=== PATIENT | male | born 1950 | race Caucasian/White ===

== ENCOUNTER 2018-03-01 06:50 | Outpatient (CLI) | payer MEDICARE, OTHER ==
[2018-03-01] MEDS ORDERED: IOPAMIDOL-300 50 ML VIAL ONE (07:35)
[2018-03-01] MEDS ORDERED: IOPAMIDOL-300 100 ML VIAL ONE (07:35)
[2018-03-01 08:46] LABS: CREATININE 0.9 mg/dL (0.6-1.2)
--- NOTE | 2018-03-01 09:42 | CT Report ---
Procedure Date: 03/01/2018 Accession Number: [id number] / [id number] Procedure: CT - Abdomen/Pelvis W/ CPT Code: FULL RESULT: EXAM: Abdomen/Pelvis W/ DATE: 03/01/2018 9:08 AM CLINICAL HISTORY: ABDOMINAL PAIN,LLQ, TOBACCO DEPENDENCE COMPARISON: None. TECHNIQUE: Routine helical CT imaging was performed through the abdomen and pelvis. IV contrast: 100 mL Isovue 300. Enteric contrast: Yes. Reconstructions: Coronal and sagittal. In accordance with CT protocol optimization, one or more of the following dose reduction techniques were utilized for this exam: automated exposure control, adjustment of mA and/or KV based on patient size, or use of iterative reconstructive technique. FINDINGS: Lung Bases: Unremarkable. Liver: Normal. No masses. Gallbladder/Bile Ducts: Unremarkable. Spleen: Normal. Pancreas: Normal. Adrenal Glands: Normal. Kidneys: Normal. No masses or hydronephrosis. Peritoneal Cavity/Bowel: Normal. No free fluid, free air or adenopathy. No masses or acute inflammatory process. The appendix is well visualized and normal. Pelvic Organs: Sigmoid diverticulosis, without CT evidence of diverticulitis. Vasculature: No aneurysms or other significant abnormality. Bones: No significant abnormality. Other: None. IMPRESSION: Diverticulosis, without CT evidence of diverticulitis. RADIA
[2018-03-01] MEDS: IOPAMIDOL-300 100 ML VIAL IVP ONE (11:18)
[2018-03-01] MEDS: IOPAMIDOL-300 50 ML VIAL PO ONE (11:18)
== END 2018-03-01 06:51 | disposition home or self-care (01) ==
LOC: LAB 06:50 → DI 06:51
PROVIDERS: ATTEND Internal Medicine Gastroenterology
DX: K57.30 Diverticulosis of large intestine without perforation or abscess without bleeding (principal); R10.32 Left lower quadrant pain; F17.200 Nicotine dependence, unspecified, uncomplicated
CPT/HCPCS: 36415; 74177; 82565; 93005; Q9967

== ENCOUNTER 2018-03-09 10:22 | Day surgery (SDC) | payer MEDICARE, OTHER ==
[2018-03-09] MEDS ORDERED: LACTATED RINGERS 1,000 ML IV ONE (11:02)
[2018-03-09] MEDS ORDERED: MIDAZOLAM 2 MG/2 ML VIAL IVP ONE (12:11)
[2018-03-09] MEDS ORDERED: fentaNYL 250 MCG/5 ML VIAL IVP ONE (12:11)
[2018-03-09 14:17] VITALS: BP 122/65
== END 2018-03-09 10:23 | disposition home or self-care (01) ==
LOC: SDS 10:22
PROVIDERS: ATTEND Internal Medicine Gastroenterology
PROC: 0DBL8ZZ Excision of Transverse Colon, Via Natural or Artificial Opening Endoscopic (ICD-10-PCS; 2018-03-09)
PROC: 0DBN8ZZ Excision of Sigmoid Colon, Via Natural or Artificial Opening Endoscopic (ICD-10-PCS; 2018-03-09)
PROC: 3E0H8GC Introduction of Other Therapeutic Substance into Lower GI, Via Natural or Artificial Opening Endoscopic (ICD-10-PCS; 2018-03-09)
PROC: 0DBM8ZZ Excision of Descending Colon, Via Natural or Artificial Opening Endoscopic (ICD-10-PCS; principal; 2018-03-09 11:30)
DX: R10.32 Left lower quadrant pain (principal); D12.4 Benign neoplasm of descending colon; D12.3 Benign neoplasm of transverse colon; K63.5 Polyp of colon; K57.30 Diverticulosis of large intestine without perforation or abscess without bleeding; Z80.0 Family history of malignant neoplasm of digestive organs; G47.30 Sleep apnea, unspecified; R73.03 Prediabetes; F17.210 Nicotine dependence, cigarettes, uncomplicated; E66.9 Obesity, unspecified; Z68.34 Body mass index [BMI] 34.0-34.9, adult
CPT/HCPCS: 45380; 45381; 45385; J3010; J7120; 36415; 82565

== ENCOUNTER 2018-07-20 14:00 | Outpatient (CLI) | payer MEDICARE, OTHER | END 2018-07-20 14:01 | disposition critical access hospital (66) | LOC: EMS 14:00 | PROVIDERS: ATTEND Surgery | DX: S09.90XA Unspecified injury of head, initial encounter (principal); M25.552 Pain in left hip; M79.661 Pain in right lower leg; M25.532 Pain in left wrist; W11.XXXA Fall on and from ladder, initial encounter; Y92.008 Other place in unspecified non-institutional (private) residence as the place of occurrence of the external cause | CPT/HCPCS: A0425; A0429 ==

== ENCOUNTER 2018-07-20 14:38 | Emergency (ER) | payer MEDICARE, OTHER ==
[2018-07-20] MEDS ORDERED: TETANUS/DIPHTHERIA/PERTUSSIS 0.5 ML SYRINGE IM ONE (14:52)
[2018-07-20] MEDS ORDERED: BUFFERED LIDOCAINE 10 ML SYRINGE SUBQ STA (14:53)
--- NOTE | 2018-07-20 14:55 | ED Physician Documentation ---
History of Present Illness - Stated complaint Stated Complaint: FALL FROM LADDER - Chief complaint Chief Complaint: Trauma Ext - History obtained from History obtained from: Patient, EMS - History of Present Illness Timing: Today (68-year-old gentleman with unknown tetanus status was putting up the [employer] lights after having a few drinks. He was up about 12 feet and the ladder gave out on him. He fell hitting his right leg first, then his left hip and then his left scalp. There was no loss of consciousness. He is not anticoagulated. He declines pain medication on initial evaluation.) Review of Systems Ten Systems: 10 systems reviewed and negative Constitutional: denies: Fever, Chills Nose: denies: Rhinorrhea / runny nose, Congestion Cardiac: denies: Chest pain / pressure, Palpitations Respiratory: denies: Dyspnea, Cough PD PAST MEDICAL HISTORY - Present Medications Home Medications: Ambulatory Orders Medication Instructions Recorded Confirmed No Known Home Medications 03/08/18 07/20/18 - Allergies Allergies/Adverse Reactions: Allergies Allergy/AdvReac Type Severity Reaction Status Date / Time codeine Allergy Hives Verified 07/20/18 14:52 PD ED PE NORMAL - Vitals Vital signs reviewed: Yes - General General: Alert and oriented X 3, Other (Jovial fellow not in C-spine precautions who smells slightly of alcohol.) - HEENT HEENT: PERRL, EOMI, Other (There is a 1 cm laceration over the far left forehead without underlying bony tenderness) - Neck Neck: Supple, no meningeal sign, No bony TTP - Cardiac Cardiac: RRR, No murmur - Respiratory Respiratory: No respiratory distress, Clear bilaterally - Abdomen Abdomen: Normal bowel sounds, Soft, Non tender - Extremities Extremities: Other (Left hip is slightly shortened and externally rotated and he has difficult pain with any rotation. There is a deformity of the upper tibial area on the right. He has a little shallow laceration on the palm, thenar musculature without underlying bony tenderness on the left.) - Neuro Neuro: Alert and oriented X 3, communications director 2-12 intact Eye Opening: Spontaneous Motor: Obeys Commands Verbal: Oriented GCS Score: 15 - Psych Psych: Normal mood, Normal affect Results - Vitals Vitals: Vital Signs - 24 hr 07/20/18 07/20/18 14:47 16:58 Temperature 36.8 C Heart Rate 76 78 Respiratory 16 16 Rate Blood Pressure 134/78 H 129/70 O2 Saturation 96 97 Oxygen O2 Source Room air - Labs Labs: Laboratory Tests 07/20/18 07/20/18 15:10 15:10 WBC 11.6 H RBC 4.10 L Hgb 13.7 L Hct 40.4 L MCV 98.7 H MCH 33.4 H MCHC 33.8 RDW 13.0 Plt Count 211 MPV 7.7 Neut # (Auto) 9.5 H Lymph # (Auto) 1.2 L Bollinger # (Auto) 0.7 Eos # (Auto) 0.1 Baso # (Auto) 0.1 Absolute Nucleated RBC 0.01 Nucleated RBC % 0.1 Sodium 135 Potassium 3.8 Chloride 104 Carbon Dioxide 24 Anion Gap 7.0 BUN 18 Creatinine 0.9 Estimated GFR (MDRD) 84 L Glucose 129 H Calcium 9.2 Total Bilirubin 0.5 AST 27 ALT 27 Alkaline Phosphatase 87 Total Protein 7.6 Albumin 4.6 Globulin 3.0 Albumin/Globulin Ratio 1.5 Lipase 25 Ethyl Alcohol 5.1 - Rads (name of study) L wrist 4v Radiology: EMP read contemporaneously (Intra-Articular distal radius fracture) L Hip XR Radiology: EMP read contemporaneously (Impacted left femoral neck fracture with mild displacement) R tib fib Radiology: EMP read contemporaneously (Spiral fracture through the tibial plateau and upper tibia) CT Head and Cspine Radiology: EMP read contemporaneously (no ICH or frx) Procedures - Laceration (location) Face Length in cm: 2 Wound type: Linear Anesthesia: Lidocaine 1%, With bicarb Wound Preparation: Irrigated copiously NS Skin layer closure: Nylon, Running, Size #-0 - enter number (5-0) Other: Tetanus booster given Complexity: Simple L hand Length in cm: 1 Wound type: Curved Anesthesia: Lidocaine 1%, With bicarb Wound Preparation: Irrigated copiously NS Skin layer closure: Nylon, Interrupted, Size #-0 - enter number (4-0), Sutures - enter # (3) Other: Tetanus booster given Complexity: Simple - Splint (location) L wrist Splint applied by: Tech Type of splint: Fiberglass, Long arm, Sugar tong Other: Patient tolerated well, No complications, Neurovascular intact PD MEDICAL DECISION MAKING - ED course ED course: 68-year-old gentleman fell off a ladder today from about 12 feet first onto the right foot and then the left hip. He has multiple fractures including the left distal radius, left hip, and a complicated fracture of the right tib. Case discussed by phone with Dr. Eaton, the on-call orthopedist reviewed his x-rays. The hip and especially the tibia probably require transfer to a trauma center for definitive treatment and he was accepted at [facility] by Dr. Vitale at 1730 and cobras were completed. He is stable for transport. Departure - Departure Disposition: 02 Transfer Acute Care Hosp Clinical Impression: Impacted fracture of left hip Qualifiers: Encounter type: initial encounter Fracture type: closed Qualified Code(s): S72.092A - Other fracture of head and neck of left femur, initial encounter for closed fracture Tibial plateau fracture, right Qualifiers: Encounter type: initial encounter Fracture type: closed Qualified Code(s): S82.141A - Displaced bicondylar fracture of right tibia, initial encounter for closed fracture Left wrist fracture Qualifiers: Encounter type: initial encounter Fracture type: closed Qualified Code(s): S62.102A - Fracture of unspecified carpal bone, left wrist, initial encounter for closed fracture Fall from ladder Qualifiers: Encounter type: initial encounter Qualified Code(s): W11.XXXA - Fall on and from ladder, initial encounter Head injury Qualifiers: Encounter type: initial encounter Qualified Code(s): S09.90XA - Unspecified injury of head, initial encounter Facial laceration Qualifiers: Encounter type: initial encounter Qualified Code(s): S01.81XA - Laceration without foreign body of other part of head, initial encounter Laceration of hand Qualifiers: Encounter type: initial encounter Foreign body presence: without foreign body Laterality: left Qualified Code(s): S61.412A - Laceration without foreign body of left hand, initial encounter Condition: Serious
[2018-07-20 15:32] LABS: BASOPHILS # (AUTO) 0.1 10^3/uL (0.0-0.1); BASOPHILS % (AUTO) 0.6 %; EOSINOPHILS # (AUTO) 0.1 10^3/uL (0.0-0.7); EOSINOPHILS % (AUTO) 0.7 %; HGB - HEMOGLOBIN 13.7 g/dL (14.0-18.0); LYMPHOCYTES # (AUTO) 1.2 10^3/uL (1.5-3.5); LYMPHOCYTES % (AUTO) 10.6 %; MEAN CORPUSCULAR HEMOGLOBIN 33.4 pg (27.0-31.0); MEAN CORPUSCULAR HGB CONC 33.8 g/dL (32.0-36.0); MEAN CORPUSCULAR VOLUME 98.7 fL (80.0-94.0); MEAN PLATELET VOLUME 7.7 fL (7.4-11.4); MONOCYTES # (AUTO) 0.7 10^3/uL (0.0-1.0); MONOCYTES % (AUTO) 6.1 %; NEUTROPHILS # (AUTO) 9.5 10^3/uL (1.5-6.6); PLT - PLATELET COUNT 211 10^3/uL (130-450); WHITE BLOOD COUNT 11.6 x10^3/uL (4.8-10.8)
[2018-07-20 15:38] LABS: ALBUMIN 4.6 g/dL (3.2-5.5); ALBUMIN/GLOBULIN RATIO 1.5 (1.0-2.2); BILIRUBIN,TOTAL 0.5 mg/dL (0.2-1.0); CALCIUM 9.2 mg/dL (8.5-10.3); CREATININE 0.9 mg/dL (0.6-1.2); TOTAL PROTEIN 7.6 g/dL (6.7-8.2)
[2018-07-20] MEDS ORDERED: MORPHINE 10 MG/ML VIAL IVP STA (16:20)
[2018-07-20 17:00] VITALS: BP 129/70
--- NOTE | 2018-07-20 17:09 | XRAY Report ---
Reason: fall from height Procedure Date: 07/20/2018 Accession Number: [id number] / [id number] Procedure: XR - Chest 1 View X-Ray CPT Code: 48702 FULL RESULT: EXAM: CHEST RADIOGRAPHY EXAM DATE: 07/20/2018 03:58 PM. CLINICAL HISTORY: Fall from ladder. Left-sided pain. COMPARISON: None. TECHNIQUE: 1 view. FINDINGS: Lungs/Pleura: No focal opacities evident. No pleural effusion. No pneumothorax. Mediastinum: Within exam limitations, the cardiomediastinal contour is normal. Other: No fractures identified. IMPRESSION: Normal single view chest. RADIA
--- NOTE | 2018-07-20 17:11 | XRAY Report ---
Reason: fall wrist inj Procedure Date: 07/20/2018 Accession Number: [id number] / [id number] Procedure: XR - Wrist 4 View LT CPT Code: FULL RESULT: EXAM: LEFT WRIST RADIOGRAPHY EXAM DATE: 07/20/2018 03:59 PM. CLINICAL HISTORY: Fall from ladder. Wrist injury. Pain. COMPARISON: None. TECHNIQUE: 4 views. FINDINGS: Bones: Minimally distracted radial styloid fracture. No other bone abnormalities identified. Joints: Normal. No subluxations. Soft Tissues: Associated soft tissue swelling. IMPRESSION: Radial styloid fracture. RADIA
--- NOTE | 2018-07-20 17:14 | XRAY Report ---
Reason: fall leg injury Procedure Date: 07/20/2018 Accession Number: [id number] / [id number] Procedure: XR - Hip w/Pelvis 2-3V LT CPT Code: FULL RESULT: EXAM: LEFT HIP AND PELVIS RADIOGRAPHY EXAM DATE: 07/20/2018 03:58 PM. HISTORY: Fall from ladder, left leg injury. COMPARISONS: FEMUR 2V LT 07/20/2018 3:58 PM. TECHNIQUE: 1 view of the pelvis and 1 view of the hip. FINDINGS: Bones: Acute transverse fracture mid left femoral neck with mild displacement. No other fracture or focal bone lesion is identified. Joints: The bilateral hip, pubis symphysis, and sacroiliac joints are preserved. Moderate degenerative disk disease L4-L5. Soft Tissues: Normal. No soft tissue swelling. IMPRESSION: Mildly displaced acute transverse fracture of the mid left femoral neck. RADIA
--- NOTE | 2018-07-20 17:16 | XRAY Report ---
Reason: fall leg injury Procedure Date: 07/20/2018 Accession Number: [id number] / [id number] Procedure: XR - Femur 2V LT CPT Code: FULL RESULT: EXAM: LEFT FEMUR RADIOGRAPHY EXAM DATE: 07/20/2018 03:58 PM. CLINICAL HISTORY: Fall from ladder, left leg injury and pain. COMPARISON: HIP W/PELVIS 2-3V LT 07/20/2018 3:58 PM. TECHNIQUE: 4 views. FINDINGS: Bones: Acute transverse fracture of the mid left femoral neck with mild displacement. The remainder of the left femur appears intact on the available views. No focal bone lesions are identified. Joints: The visualized hip and knee joints are unremarkable. Soft Tissues: Normal. No soft tissue swelling. IMPRESSION: Mildly displaced acute transverse fracture of the mid left femoral neck. RADIA
--- NOTE | 2018-07-20 17:19 | XRAY Report ---
Reason: fall leg injury Procedure Date: 07/20/2018 Accession Number: [id number] / [id number] Procedure: XR - Tib/Fib RT CPT Code: FULL RESULT: EXAM: RIGHT TIBIA/FIBULA RADIOGRAPHY EXAM DATE: 07/20/2018 03:58 PM. CLINICAL HISTORY: Fall from ladder, leg injury. COMPARISON: None. TECHNIQUE: 4 views. FINDINGS: Bones: Acute spiral fracture extending from the lateral tibial plateau (with mild impaction) through the proximal tibial shaft (with minimal displacement). A nondisplaced fracture line also seen extending obliquely to the medial tibial plateau without depression. The fibula is intact. Chronic enthesopathy is noted at the tibial tuberosity. Accessory ossicle is noted inferior to the lateral malleolus. Joints: The visualized knee and ankle joints are normally aligned. Moderate suprapatellar joint effusion is noted at the knee with lipohemarthrosis. Soft Tissues: Mild soft tissue swelling greatest laterally throughout the right calf and ankle. IMPRESSION: Acute spiral fracture through the right proximal tibia with mildly depressed involvement at the lateral tibial plateau, nondepressed involvement of the medial tibial plateau, and minimally displaced extension to the proximal tibial shaft. RADIA
--- NOTE | 2018-07-20 17:31 | CT Report ---
Reason: fall etoh Procedure Date: 07/20/2018 Accession Number: [id number] / [id number] Procedure: CT - Cervical Spine W/O CPT Code: FULL RESULT: EXAM: CT CERVICAL SPINE WITHOUT CONTRAST DATE: 07/20/2018 04:54 PM. HISTORY: Follow-up. COMPARISONS: None. TECHNIQUE: Thin-section axial images were acquired of the cervical spine without contrast. Post-processing: Coronal and sagittal reformats. Other: None. In accordance with CT protocol optimization, one or more of the following dose reduction techniques were utilized for this exam: automated exposure control, adjustment of mA and/or KV based on patient size, or use of iterative reconstructive technique. FINDINGS: Alignment: No evidence of dislocation. Bones: No fracture or bone lesion. Interspace Levels/Facets: There is mild multilevel facet arthrosis and disk space narrowing. Spinal canal: No significant abnormalities are seen. Other: No evidence of prevertebral soft tissue swelling or apical pneumothorax. IMPRESSION: No evidence of cervical spine fracture or dislocation. RADIA
--- NOTE | 2018-07-20 17:32 | CT Report ---
Reason: head injury Procedure Date: 07/20/2018 Accession Number: [id number] / [id number] Procedure: CT - Head W/O CPT Code: FULL RESULT: EXAM: CT HEAD EXAM DATE: 07/20/2018 04:54 PM. CLINICAL HISTORY: 68-year-old male. Head injury. COMPARISON: None. TECHNIQUE: Multiaxial CT images were obtained from the foramen magnum to the vertex. Reformats: Sagittal and coronal. IV contrast: None. In accordance with CT protocol optimization, one or more of the following dose reduction techniques were utilized for this exam: automated exposure control, adjustment of mA and/or KV based on patient size, or use of iterative reconstructive technique. FINDINGS: Parenchyma: No intraparenchymal hemorrhage. No evidence of mass, midline shift, or CT findings of infarction. Hamilton-white differentiation is distinct. Extraaxial Spaces: Normal for age. No subdural or epidural collections identified. Ventricles: Normal in size and position. Sinuses and Orbits: Mild mucosal thickening left maxillary sinus. Imaged paranasal sinuses, orbits, and mastoids show no significant abnormality. Bones: No evidence of fracture or calvarial defect. Other: Lateral left frontal scalp soft tissue hematoma and laceration, no underlying fracture. IMPRESSION: 1. No CT evidence of acute intracranial abnormality, specifically no CT evidence of acute infarct, intracranial hemorrhage, mass effect, midline shift, or hydrocephalus. 2. Lateral left frontal scalp soft tissue hematoma and laceration, no underlying fracture. RADIA
== END 2018-07-20 18:35 | disposition short-term general hospital (02) ==
LOC: EDUNIT# → ED 14:38
DX: S72.092A Other fracture of head and neck of left femur, initial encounter for closed fracture (principal); S82.141A Displaced bicondylar fracture of right tibia, initial encounter for closed fracture; S62.102A Fracture of unspecified carpal bone, left wrist, initial encounter for closed fracture; S01.81XA Laceration without foreign body of other part of head, initial encounter; S61.412A Laceration without foreign body of left hand, initial encounter; W11.XXXA Fall on and from ladder, initial encounter; Z23 Encounter for immunization
CPT/HCPCS: 12001; 12011; 29105; 36415; 70450; 71045; 72125; 80053; 80320; 83690; 85025; 90471; 96374; 99284; 99285

== ENCOUNTER 2018-07-20 18:32 | Outpatient (CLI) | payer MEDICARE, OTHER | END 2018-07-20 23:59 | disposition short-term general hospital (02) | LOC: EMS 18:32 | PROVIDERS: ATTEND Surgery | DX: S72.002A Fracture of unspecified part of neck of left femur, initial encounter for closed fracture (principal); S82.201A Unspecified fracture of shaft of right tibia, initial encounter for closed fracture; S62.102A Fracture of unspecified carpal bone, left wrist, initial encounter for closed fracture; W11.XXXA Fall on and from ladder, initial encounter | CPT/HCPCS: A0425; A0426 ==

== ENCOUNTER 2019-02-15 08:19 | Outpatient (CLI) | payer MEDICARE, OTHER ==
[2019-02-15 08:45] LABS: BASOPHILS % (AUTO) 0.5 %; EOSINOPHILS # (AUTO) 0.2 10^3/uL (0.0-0.7); EOSINOPHILS % (AUTO) 2.8 %; HGB - HEMOGLOBIN 14.8 g/dL (14.0-18.0); LYMPHOCYTES # (AUTO) 1.6 10^3/uL (1.5-3.5); LYMPHOCYTES % (AUTO) 26.2 %; MEAN CORPUSCULAR HEMOGLOBIN 31.8 pg (27.0-31.0); MEAN CORPUSCULAR HGB CONC 32.5 g/dL (32.0-36.0); MEAN CORPUSCULAR VOLUME 98.1 fL (80.0-94.0); MEAN PLATELET VOLUME 9.5 fL (7.4-11.4); MONOCYTES # (AUTO) 0.5 10^3/uL (0.0-1.0); NEUTROPHILS # (AUTO) 3.8 10^3/uL (1.5-6.6); PLT - PLATELET COUNT 219 10^3/uL (130-450); RED BLOOD COUNT 4.65 10^6/uL (4.70-6.10); RED CELL DISTRIBUTION WIDTH 13.2 % (12.0-15.0); WHITE BLOOD COUNT 6.2 x10^3/uL (4.8-10.8)
[2019-02-15 09:02] LABS: ALBUMIN 4.3 g/dL (3.2-5.5); ALBUMIN/GLOBULIN RATIO 1.2 (1.0-2.2); BILIRUBIN,TOTAL 0.6 mg/dL (0.2-1.0); CALCIUM 9.7 mg/dL (8.5-10.3); CREATININE 0.8 mg/dL (0.6-1.2); TOTAL PROTEIN 7.9 g/dL (6.7-8.2)
== END 2019-02-15 08:20 | disposition home or self-care (01) ==
LOC: LAB 08:19
PROVIDERS: ATTEND Internal Medicine Gastroenterology
DX: Z86.010 Personal history of colon polyps (principal)
CPT/HCPCS: 36415; 80053; 85025

== ENCOUNTER 2019-02-27 11:17 | Day surgery (SDC) | payer MEDICARE, OTHER ==
[2019-02-27] MEDS ORDERED: LACTATED RINGERS 1,000 ML IV ONE (11:48)
[2019-02-27] MEDS ORDERED: MIDAZOLAM 2 MG/2 ML VIAL IVP ONE (13:21)
[2019-02-27] MEDS ORDERED: fentaNYL 250 MCG/5 ML VIAL IVP ONE (13:21)
[2019-02-27 14:06] VITALS: BP 103/65
== END 2019-02-27 11:18 | disposition home or self-care (01) ==
LOC: SDS 11:17
PROVIDERS: ATTEND Internal Medicine Gastroenterology
PROC: 0DBP8ZZ Excision of Rectum, Via Natural or Artificial Opening Endoscopic (ICD-10-PCS; 2019-02-27)
PROC: 0DBN8ZZ Excision of Sigmoid Colon, Via Natural or Artificial Opening Endoscopic (ICD-10-PCS; 2019-02-27)
PROC: 3E0H8GC Introduction of Other Therapeutic Substance into Lower GI, Via Natural or Artificial Opening Endoscopic (ICD-10-PCS; 2019-02-27)
PROC: 0DBM8ZZ Excision of Descending Colon, Via Natural or Artificial Opening Endoscopic (ICD-10-PCS; principal; 2019-02-27 12:30)
DX: K63.5 Polyp of colon (principal); K62.1 Rectal polyp; K57.30 Diverticulosis of large intestine without perforation or abscess without bleeding; E66.9 Obesity, unspecified; F17.210 Nicotine dependence, cigarettes, uncomplicated; F10.20 Alcohol dependence, uncomplicated; Z68.36 Body mass index [BMI] 36.0-36.9, adult
CPT/HCPCS: 45380; 45381; 45385; J3010; J7120

== ENCOUNTER 2019-09-06 08:21 | Outpatient (CLI) | payer MEDICARE, OTHER ==
--- NOTE | 2019-09-06 16:46 | Mammography Report ---
Reason: LUMP IN LT BREAST Procedure Date: 09/06/2019 Accession Number: [id number] / [id number] Procedure: LANDRY - Diagnostic Dig Bilat CPT Code: Final Report FULL RESULT: EXAM: Diagnostic Dig Bilat DATE: 09/06/2019 9:32 AM CLINICAL HISTORY: Diagnostic examination. Palpable lump in the left breast. TECHNIQUE: (B) - Bilateral CC and MLO views were obtained. Spot CC and spot ML images are obtained. COMPARISON: None PARENCHYMAL PATTERN: (A) - The breast(s) demonstrate(s) scattered fibroglandular densities. FINDINGS: Compared the right side there is increased breast glandular tissue on the left with irregular appearance and greater than expected density as well as architectural distortion, suspicious. Focused left breast ultrasound demonstrates irregular margins and hypoechoic outline with dimensions difficult to discern, amenable to ultrasound-guided biopsy. IMPRESSION: Suspicious findings. BI-RADS category 4. RECOMMENDATION: (BIOPSY) - left breast. BI-RADS CATEGORY: (4) - Suspicious. STANDARD QUALIFYING STATEMENTS: 1. This examination was not reviewed with the aid of Computer-Aided Detection (CAD). 2. A negative or benign imaging report should not preclude biopsy if clinically suspicious findings are present. 3. Dense breasts may obscure an underlying neoplasm. 4. This examination was reviewed without the aid of 3D breast imaging (tomosynthesis).
== END 2019-09-06 08:22 | disposition home or self-care (01) ==
LOC: DI 08:21
PROVIDERS: ATTEND Family Medicine
DX: N63.20 Unspecified lump in the left breast, unspecified quadrant (principal)
CPT/HCPCS: 76642; 77066

== ENCOUNTER 2019-09-20 10:51 | Outpatient (CLI) | payer MEDICARE, OTHER ==
[2019-09-20] MEDS ORDERED: BUFFERED LIDOCAINE 10 ML SYRINGE ONE (11:07)
[2019-09-20] MEDS ORDERED: BUFFERED LIDOCAINE 10 ML SYRINGE IU ONE (12:26)
--- NOTE | 2019-09-20 15:42 | Ultrasound Report ---
Reason: LT RETRO AREOLAR MASS Procedure Date: 09/20/2019 Accession Number: [id number] / [id number] Procedure: US - Biopsy Breast Core CPT Code: Final Report FULL RESULT: PROCEDURE: Ultrasound-guided needle biopsy left breast mass. CLINICAL DATA: Targeted mass measuring 2.7 x 1.6 cm with irregular margins in the retroareolar region of the left breast. Informed consent was obtained. Using standard aseptic technique, both 1% buffered lidocaine and Sensorcaine were injected into the left breast for local anesthesia. A small adore was made in the skin with a #11 blade. A 12-gauge [employer] vacuum-assisted device was used to obtain 4 specimens. The wound was dressed and ice applied. The patient was observed for approximately 15 minutes, then was discharged from diagnostic imaging Department in good condition following instructions on wound care and obtaining biopsy results. The patient is scheduled to receive the biopsy results from the referring physician. The tissue was sent for histologic analysis. IMPRESSION: Ultrasound-guided biopsy of the left breast. AN ADDENDUM WILL BE MADE TO THIS REPORT WHEN PATHOLOGY IS REVIEWED TO ESTABLISH CONCORDANCE.
== END 2019-09-20 10:52 | disposition home or self-care (01) ==
LOC: DI 10:51
PROVIDERS: ATTEND Family Medicine
DX: N63.42 Unspecified lump in left breast, subareolar (principal)
CPT/HCPCS: 19083

== ENCOUNTER 2021-12-01 07:09 | Outpatient (CLI) | payer MEDICARE, OTHER ==
--- NOTE | 2021-12-01 08:51 | CT Report ---
PROCEDURE: Low Dose Lung Cancer Screen INDICATIONS: SMOKER TECHNIQUE: Noncontrast low-dose images were acquired from the pulmonary apices to the posterior costophrenic ang les. Multiplanar MIP reformats were then acquired. For radiation dose reduction, the following was used: automated exposure control, adjustment of mA and/or kV according to patient size. COMPARISON: None. FINDINGS: Image quality: Excellent. Lungs and pleura: Suspicious nodules. Clear lung broussard. No pleural fluid. Mediastinum: Heart size is normal. No pericardial effusion. No mediastinal adenopathy by size crit eria. Thoracic aorta and central pulmonary arteries are normal in size. Esophagus is normal in salma shanice. No hiatal hernia. Bones and chest wall: No suspicious bony lesions. No vertebral body compression fractures. No axil shania or supraclavicular adenopathy by size criteria. Thyroid is grossly unremarkable. Abdomen: Visualized upper abdomen solid organs and bowel loops appear normal in the absence of contr ast. IMPRESSION: 1. LungRads category 1: Negative. No nodules and/or definitely benign nodules. 2. Annual low-dose noncontrast CT of the chest is recommended for lung cancer screening. CLINICAL RECOMMENDATION STATEMENTS: In patients <35 years with an ITN detected on CT, MRI, or extrathyroidal ultrasound, the Committee re commends further evaluation with dedicated thyroid ultrasound if the nodule is "e1 cm and has no susp icious imaging features, and if the patient has normal life expectancy. In patients "e35 years with an ITN detected on CT, MRI, or extrathyroidal ultrasound, the Committee r ecommends further evaluation with dedicated thyroid ultrasound if the nodule is "e1.5 cm and has no s uspicious imaging features, and if the patient has normal life expectancy. (ACR, 2014) Reviewed by: Austyn Tolbert MD on 12/01/2021 8:50 AM PDT Approved by: Austyn Tolbert MD on 12/01/2021 8:50 AM PDT Station ID: [id number]
--- NOTE | 2021-12-01 13:08 | Ultrasound Report ---
PROCEDURE: Aorta Screening INDICATIONS: SMOKER TECHNIQUE: Real time scanning was performed of the aorta and iliac arteries, with image documentatio n. COMPARISON: None FINDINGS: Aorta: Proximal aortic diameter measures 2.7 x 2.9 cm. Mid-aorta measures 2.2 x 2.2 cm. Distal aor tic diameter is 1.7 x 1.7 cm. Iliac arteries: Right common iliac artery measures 1.1 x 1.3 cm. Left common iliac artery measures 1.2 x 1.2 cm. Scattered calcified plaque noted in the abdominal aorta and the proximal pelvic vessels appear IMPRESSION: No abdominal aortic aneurysm. Reviewed by: Lorena Matute MD, PhD on 12/01/2021 1:07 PM PDT Approved by: Lorena Matute MD, PhD on 12/01/2021 1:07 PM PDT Station ID: [id number]
== END 2021-12-01 07:10 | disposition home or self-care (01) ==
LOC: DI 07:09
PROVIDERS: ATTEND Nurse Practitioner Family
DX: Z12.2 Encounter for screening for malignant neoplasm of respiratory organs (principal); Z13.6 Encounter for screening for cardiovascular disorders; F17.210 Nicotine dependence, cigarettes, uncomplicated

== ENCOUNTER 2022-01-04 09:51 | Outpatient (CLI) | payer MEDICARE, OTHER ==
[2022-01-04 15:17] LABS: CHOL/HDL RATIO 2.3 (<5.0); CHOLESTEROL 163 mg/dL; HDL CHOLESTEROL 72 mg/dL; LDL CHOLESTEROL,CALCULATED 77 mg/dL; LDL/HDL RATIO 1.1 (<3.6); TRIGLYCERIDES 69 mg/dL; VLDL CHOLESTEROL 14 mg/dL
[2022-01-04 20:27] LABS: ESTIMATED AVERAGE GLUCOSE 114 mg/dL (70-100); HEMOGLOBIN A1c% 5.6 % (4.27-6.07)
== END 2022-01-04 09:52 | disposition home or self-care (01) ==
LOC: LAB.S 09:51
PROVIDERS: ATTEND Nurse Practitioner Family
DX: E78.5 Hyperlipidemia, unspecified (principal); R73.01 Impaired fasting glucose
CPT/HCPCS: 36415; 80061; 83036; 83721

== ENCOUNTER 2023-01-25 08:46 | Outpatient (CLI) | payer MEDICARE, OTHER ==
--- NOTE | 2023-01-25 17:50 | CT Report ---
PROCEDURE: Low Dose Lung Cancer Screen INDICATIONS: SMOKER TECHNIQUE: A CT scan of the chest was performed. Intravenous contrast media was not administered. Images were re corded and evaluated at appropriate window settings. Reformats: axial MIP of the chest, coronal and s agittal. For radiation dose reduction, the following was used: automated exposure control, adjustment of mA and/or kV according to patient size. COMPARISON: 12/01/2021 FINDINGS: Image quality: Excellent. Prior cancer history: Unsure. Lungs and pleura: No pleural effusions. No pneumothorax. No suspicious pulmonary nodules which requi re follow up. Tiny subpleural calcified granuloma noted in the superior right middle lobe (166/series 4). Mediastinum: Heart size is normal. No pericardial effusion. No large vessel abnormality. No mediastin al adenopathy by size criteria. Mild atherosclerotic calcifications. Chest wall and lower neck: Thyroid is unremarkable. No axillary or supraclavicular adenopathy by size . Mild left greater than right gynecomastia. Bones: No aggressive osseous abnormality. Upper Abdomen: Unremarkable. IMPRESSION: Lung RAD: 1 - Negative. Recommendation: Continue annual screening in 12 Months with LDCT Non-Lung Significant Findings: None. Mild atherosclerosis. Reviewed by: Salinas Draper MD on 01/25/2023 5:49 PM PDT Approved by: Salinas Draper MD on 01/25/2023 5:49 PM PDT Station ID: [id number]
== END 2023-01-25 08:47 | disposition home or self-care (01) ==
LOC: DI 08:46
PROVIDERS: ATTEND Nurse Practitioner Family
DX: Z12.2 Encounter for screening for malignant neoplasm of respiratory organs (principal); F17.210 Nicotine dependence, cigarettes, uncomplicated; I70.90 Unspecified atherosclerosis

== ENCOUNTER 2024-03-30 14:33 | Outpatient (CLI) | payer MEDICARE, OTHER ==
--- NOTE | 2024-03-30 20:58 | CT Report ---
PROCEDURE: Lung Cancer Screen INDICATIONS: SMOKER TECHNIQUE: A CT scan of the chest was performed. Intravenous contrast media was not administered. Images were re corded and evaluated at appropriate window settings. Reformats: axial MIP of the chest, coronal and s agittal. For radiation dose reduction, the following was used: automated exposure control, adjustment of mA and/or kV according to patient size. COMPARISON: 01/25/2023 FINDINGS: Image quality: Excellent. Prior cancer history: Unsure. Lungs and pleura: No pleural effusions. No pneumothorax. No suspicious pulmonary nodules which requi re follow up. Mild centrilobular emphysema. Wedge-shaped scar in the posterior right upper lobe. Juxt apleural nodules along the right minor fissure. These have smooth margins. Mediastinum: Heart size is normal. No pericardial effusion. No large vessel abnormality. No mediastin al adenopathy by size criteria. Chest wall and lower neck: Thyroid is unremarkable. No axillary or supraclavicular adenopathy by size . Gynecomastia. Bones: No aggressive osseous abnormality. Upper Abdomen: Unremarkable. IMPRESSION: Lung RAD: 2 - Benign. Recommendation: Continue annual screening in 12 Months with LDCT Non-Lung Significant Findings: None. Reviewed by: Brandyn Whitaker MD on 03/30/2024 8:57 PM PDT Approved by: Brandyn Whitaker MD on 03/30/2024 8:57 PM PDT Station ID: [id number]
== END 2024-03-30 14:34 | disposition home or self-care (01) ==
LOC: DI 14:33
DX: Z12.2 Encounter for screening for malignant neoplasm of respiratory organs (principal); F17.210 Nicotine dependence, cigarettes, uncomplicated